=== PATIENT | female | born 1980 | race Caucasian/White ===

== ENCOUNTER 2016-05-24 20:28 | Emergency (ER) | payer SELFPAY ==
[2016-05-24 21:25] VITALS: BP 125/70
--- NOTE | 2016-05-24 21:39 | UC ---
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 and she has several scratches both of her hands have stinging pain where she has abrasions some bleeding afterwards, cleansed the wounds and covered with bandaids - History of Current Complaint Chief Complaint: [place] Stated Complaint: BILATERAL HAND INJURY WC Time Seen by Provider: 05/24/16 21:15 Hx Obtained From: Patient - Allergy/Home Medications Allergies/Adverse Reactions: Allergies Allergy/AdvReac Type Severity Reaction Status Date / Time Sulfamethoxazole Allergy Unknown Unknown Verified 05/24/16 21:16 w/Trimethoprim Reaction [From Bactrim] Details Home Medications: Home Medications Rx Migrane Med,? Name PRN 05/24/16 [History] PMH/Surg Hx/FS Hx/Imm Hx Previously Healthy: Yes Endocrine History Of: Denies: Diabetes Cardiovascular History Of: Denies: Hypertension, Pacemaker/ICD Respiratory History Of: Denies: Asthma GI/ History Of: Denies: Renal Disease - Surgical History Surgical History: Yes Surgery Procedure, Year, and Place: c section 2005. kidney stent 2009 AND 2015 - was later removed - Family History Known Family History: Negative: Cardiac Disease, Hypertension, Diabetes - Social History Occupation: Employed Full-time Lives: With Family Alcohol Use: Rare Substance Use Type: None Smoking Status (MU): Former Smoker When Did the Patient Quit Smoking/Using Tobacco: 20 YRS AGO - Immunization History Most Recent Tetanus Shot: WITHIN 5 YEARS Review of Systems Constitutional: Negative Skin: Other - abrasions Eyes: Negative ENT: Negative Respiratory: Negative Cardiovascular: Negative Gastrointestinal: Negative Genitourinary: Negative Motor: Negative Neurovascular: Negative Musculoskeletal: Negative Neurological: Negative Psychological: Negative All Other Systems Reviewed And Are Negative: Yes Physical Exam Triage Information Reviewed: Yes Appearance: No Pain Distress, Well-Nourished Vital Signs: Initial Vital Signs Temp 98.6 F 05/24/16 21:18 Pulse 104 05/24/16 21:18 Resp 18 05/24/16 21:18 BP 125/70 05/24/16 21:18 Pulse Ox 99 05/24/16 21:18 Vital Signs Reviewed: Yes Eyes: Positive: Conjunctiva Clear ENT: Positive: Pharynx normal, TMs normal Neck: Positive: No Lymphadenopathy Respiratory: Positive: Lungs clear, Normal breath sounds Cardiovascular: Positive: RRR, No Murmur Abdomen Description: Positive: Nontender, Soft Bowel Sounds: Positive: Present Musculoskeletal: Positive: No Edema Neurological: Positive: Alert Psychological Exam: Normal Skin: Positive: Other - both thumbs-5mm abrasionsx2 Course/Dx - Differential Dx - Multi-Symptom Provider Diagnoses: abrasions on both hands Discharge - Discharge Plan Condition: Stable Disposition: HOME Patient Education Materials: Finger Laceration (ED) Referrals: Daisy Joseph MD [Primary Care Provider] - Additional Instructions: Keep your cuts clean and dry If you have any signs of infection, swelling, pain or redness please return to clinic Please review your discharge instructions. If your symptoms do not improve please call your primary care provider or return to urgent care
== END 2016-05-24 21:57 | disposition home or self-care (01) ==
LOC: UCCORT 20:28
DX: S60.512A Abrasion of left hand, initial encounter (principal); S60.511A Abrasion of right hand, initial encounter; W50.4XXA Accidental scratch by another person, initial encounter; Y93.F9 Activity, other caregiving; Y92.9 Unspecified place or not applicable; Y99.0 Civilian activity done for income or pay; Z88.2 Allergy status to sulfonamides; Z87.891 Personal history of nicotine dependence
CPT/HCPCS: 99212; G0463